=== PATIENT | male | born 1940 | race African-American/Black ===

== ENCOUNTER 2021-10-31 13:44 | Emergency (ER) | payer OTHER, MEDICAID ==
[~2021-10-31] VITALS: Ht 180.3 cm; Wt 91.0 kg
[~2021-10-31 13:44] MED LIST: AMLO10TA80 PO; ATRO2DRO SL; BISA10SU62 RC; CRAN450T10 PO; DOCU-138 PO; GUAI-1211 PO; HYDR25SU37 RC; MULT-647 PO; PRAZ5CAP2 PO; PROC25SU2 RC; SENN-257 MT
[2021-10-31] MEDS ORDERED: SODIUM CHLORIDE 0.9% 1,000 ML IV ONE ×3 (15:00→18:45)
[2021-10-31 15:21] LABS: CHLORIDE 105 mEq/L (98-107)
[2021-10-31 15:26] LABS: HEMATOCRIT. 25.2 % (42.0-52.0); HEMOGLOBIN. 7.6 g/dL (14.0-18.0); MEAN CORPUSCULAR HEMOGLOBIN 23.5 pg (28.0-32.0); MEAN CORPUSCULAR VOLUME 78.1 fL (80.0-94.0); MEAN PLATELET VOLUME 7.6 fl (7.4-10.4); PLATELET 419 x1000/uL (130-400); RED BLOOD CELL COUNT 3.23 mill/uL (4.7-6.1); RED CELL DISTRIBUTION WIDTH 15.9 % (11.6-14.6)
[2021-10-31] MEDS ORDERED: METRONIDAZOLE 500 MG PREMIX 100 ML IV ONE (17:15)
[2021-10-31] MEDS ORDERED: CEFTRIAXONE 1 G PREMIX 50 ML IV ONE (17:15)
[2021-10-31 17:28] LABS: CLARITY URINE CLEAR (CLEAR); COLOR URINE DARK YELLOW (YELLOW); KETONES URINE TRACE (NEGATIVE); LEUKOCYTE ESTERASE URINE 2+ (NEGATIVE); NITRITE URINE NEGATIVE (NEGATIVE); OCCULT BLOOD URINE TRACE (NEGATIVE); PROTEIN URINE TRACE (NEGATIVE); SPECIFIC GRAVITY URINE 1.021 (1.005-1.030)
[2021-10-31 17:33] LABS: PLATELET ESTIMATE SLIGHTLY INCREASED
[2021-10-31] MEDS ORDERED: MORPHINE SULFATE 4 MG/ML CPJ (NOT FOR IM USE) IV ONE (18:30)
[2021-10-31] MEDS ORDERED: NALOXONE HCL 0.4MG/ML VIAL IV PRN (19:30)
[2021-10-31] MEDS ORDERED: SODIUM CHLORIDE 0.9% 1,000 ML IV SCH (19:30)
[2021-10-31] MEDS ORDERED: ONDANSETRON HCL 4MG/2ML INJ IV PRN (19:30)
[2021-10-31] MEDS ORDERED: MORPHINE SULFATE 2 MG/ML CPJ (NOT FOR IM USE) IV PRN ×2 (19:30→21:30)
[2021-10-31] MEDS ORDERED: METRONIDAZOLE 500 MG PREMIX 100 ML IV SCH (20:00)
[2021-10-31] MEDS ORDERED: THIAMINE HCL 100 MG in SODIUM CHLORIDE 0.9% 50 ML IV SCH (20:30)
[2021-10-31] MEDS ORDERED: NOREPINEPHRINE 8MG/250ML PMX 250 ML IV NR (20:58)
[2021-10-31 21:00] VITALS: BP 106/51
[2021-10-31] MEDS: THIAMINE HCL 200 MG in SODIUM CHLORIDE 0.9% 100 ML IV SCH ×2 (21:09→21:10)
[2021-11-01] MEDS ORDERED: METRONIDAZOLE 500 MG PREMIX 100 ML IV SCH (06:00)
[2021-11-01] MEDS ORDERED: CEFTRIAXONE 1,000 MG in DEXTROSE 5% WATER 50 ML IV SCH (08:00)
[2021-11-01] MEDS ORDERED: CEFTRIAXONE 1 G PREMIX 50 ML IV SCH (09:00)
== END 2021-11-01 01:14 ==
LOC: ER 13:44 → EDBEDREQ 18:17 → EDBEDREQTM 18:17 → EDBEDREQSVC 18:17 → EDBEDREQTM 18:58 → EDBEDREQ 18:58 → EDBEDREQSVC 20:17 → EDBEDREQTM 20:17 → ER 11-01 01:14 → CANBEDREQ 11-01 07:31
DX: A41.9 Sepsis, unspecified organism (principal); R65.20 Severe sepsis without septic shock; K56.7 Ileus, unspecified; N39.0 Urinary tract infection, site not specified; I25.10 Atherosclerotic heart disease of native coronary artery without angina pectoris; I10 Essential (primary) hypertension; F03.90 Unspecified dementia, unspecified severity, without behavioral disturbance, psychotic disturbance, mood disturbance, and anxiety; Z86.73 Personal history of transient ischemic attack (TIA), and cerebral infarction without residual deficits; Z79.899 Other long term (current) drug therapy
CPT/HCPCS: 36415; 74176; 80053; 81003; 83605; 83690; 83880; 85025; 87040; 93005; 96361; 96365; 96367; 96375; 99285; J0696; J2270; J3411; J3490; J7030; J7050